=== PATIENT | female | born 1945 | race Caucasian/White ===

== ENCOUNTER → 2016-10-22 | Outpatient (CLI) | payer MEDICARE, OTHER ==
[~2016-10-22] MED LIST: BIOTIN 800 MCG1 EACH PO; COLACE100 MG PO; ESTRACE42.5 GM TOP; LEVOTHROID (SY25 MCG PO; LIDEX 0.05%15 GM TOP; LUTEIN 15 MG S1 EACH PO; OSCAL + D500 MG PO; THERAGRAN-M1 TAB PO; ULTRAM50 MG PO; VITAMIN D400 UNIT PO
== END | disposition disaster alternative care site (69) ==
LOC: GRAD 08:33
DX: M47.812 Spondylosis without myelopathy or radiculopathy, cervical region (principal); M54.2 Cervicalgia

== ENCOUNTER 2017-03-10 13:00 | Inpatient (IN) | payer MEDICARE, OTHER ==
[~2017-03-10] VITALS: Ht 170.2 cm; Wt 62.9 kg
--- NOTE | ~2017-03-10 | DS ---
PATIENT'S NAME: TRISHA FLOWERS [facility] AGE: 71 Y [address] ROOM: [address] [address] LOCATION: [facility] ADMIT DATE: 03/12/2017 Discharge Summary DISCHARGE DATE: 03/14/2017 FAMILY PHYSICIAN: Jaylin Wilkins NP ATTENDING PHYSICIAN: Haven Miller REASON FOR ADMISSION: The patient was scheduled admission for an elective procedure. The patient presented with clinical and radiological findings consistent with cervical spondylosis with radiculopathy. TREATMENT RENDERED: The patient was taken to the operating room on 12/10/2016. She underwent anterior cervical diskectomy with allograft fusion and plating at C3-C4, C4-C5, and C6-C7. The surgery was uncomplicated. The patient's hospitalization was uneventful. She did have some nausea, the first day and required a fair amount of antiemetics to control the nausea. She also had the expected amount of postoperative pain, but she responded to medicines for both conditions. The patient continued to improve and by the 14 of March was well enough to go home. She was discharged home on that day with arrangements made to follow up in the Neurosurgery Clinic. At the time of discharge, her incision was healing well. FINAL DIAGNOSIS: Cervical spondylosis with radiculopathy status post cervical diskectomy and fusion. MD JENNIFER GROVE/lauryn /[id number] d: t: 03/29/17 0035, DISCHARGE SUMMARY
--- NOTE | ~2017-03-10 | OR ---
PATIENT'S NAME: TRISHA FLOWERS [facility] AGE: 71 Y [address] ROOM: [address] [address] LOCATION: [facility] ADMIT DATE: 03/12/2017 OR/Procedure Report DISCHARGE DATE: 03/14/2017 FAMILY PHYSICIAN: Jaylin Wilkins NP ATTENDING PHYSICIAN: Haven Miller SURGEON: Haven Miller MD COMPUTATIONAL MATHEMATICIAN: Negrita Ly CST DATE OF PROCEDURE: 03/12/2017 PREOPERATIVE DIAGNOSES: Cervical spondylosis with radiculopathy. POSTOPERATIVE DIAGNOSES: Cervical spondylosis with radiculopathy. PROCEDURES PERFORMED: 1. Anterior cervical diskectomy with decompression of neural elements and foraminotomy at C3-C4. 2. Anterior cervical diskectomy with decompression of neural elements and foraminotomy at C4-C5. 3. Anterior cervical diskectomy with decompression of neural elements and foraminotomy at C5-C6. 4. Use of structural and morselized allograft fusion at C3-C4. 5. Use of structural and morselized allograft fusion at C4-C5. 6. Use of structural and morselized allograft fusion at C5-C6. 7. Anterior cervical plating with Cobden Plate by DePuy from C3 to C6. 8. Use of intraoperative microscope. ANESTHESIA: General. ANESTHESIA PROVIDER: Dennis Gray MD. HISTORY: The patient is a 71-year-old female who presented with left arm weakness and numbness. The patient's symptoms had been present for a long time. She also had some left shoulder pain. 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 Surgery was recommended. The above procedures, benefits, and risks were discussed with the patient and her . With her consent, she was brought to the operating room for surgery. PROCEDURE IN DETAIL: In the operating room, the patient was placed in a supine position. Anesthesia was induced and she was intubated. The incision was marked out along the anterior border of the right sternomastoid muscle. The whole area was prepped and draped in a sterile fashion. Local anesthesia was infiltrated. The #10-blade was used to open the incision, and the platysma was divided. Dissecting along the anterior border of the sternomastoid muscle, the omohyoid muscle was seen. Dissection then continued in the gap between the PATIENT'S NAME: TRISHA FLOWERS [facility] AGE: 71 Y [address] ROOM: [id number] [place], [place] [address] LOCATION: [facility] ADMIT DATE: 03/12/2017 OR/Procedure Report DISCHARGE DATE: 03/14/2017 FAMILY PHYSICIAN: Jaylin Wilkins NP ATTENDING PHYSICIAN: Haven Miller omohyoid and sternomastoid muscles, working in a plane medial to the carotid artery and lateral to the esophagus and trachea until we got to the anterior surface of the spine. The [employer] handheld retractors were used to help with visualization. At the anterior surface of the spine, the longus colli muscles were dissected off on both sides. [employer] retractors were placed. Intraoperative x-ray was obtained to confirm that we were at the intended levels of C3-C4, C4-C5, and C5-C6. Diskectomy was then carried out at all three levels. Each disk space was incised with a #15-blade, and the pituitary rongeur was used to pull out disk material. The C4-C5 disk space was exceedingly narrow. Working very carefully, diskectomy was carried out at all three levels. The Tyler distraction pins were used to help open up the depths of the disk space, and under microscopic vision, the posterior osteophytes as well as the posterior longitudinal ligaments were removed at each level. Foraminotomy was carried out at all three levels, particularly on the left side where the patient had more symptoms. After the decompression and foraminotomy, the fusion was commenced. The adjacent endplates at C3-C4, C4-C5, and C5-C6 were drilled down. Allograft bone was then selected to match each space, and prior to inserting the allograft bone, the bone was filled with demineralized bone matrix, i.e., morcellized allograft. We had a very snug fit at each level. An anterior plate was then used to support the fusion, and two screws each were screwed into C3, C4, C5, and C6. Another x-ray was obtained to confirm that the graft, screws, and plates were in satisfactory position as indeed they were. Final tightening was carried out. Irrigation was used to wash out the debris. Hemostasis was achieved. The incision was closed in layers using appropriate suture materials. Dermabond was used to close the skin. A sterile dressing was applied. POSTOPERATIVE CONDITION: The patient's anesthesia was then reversed. She was extubated and taken to the recovery room to complete her recovery. ATTESTATION: I was present at and performed every aspect of this procedure, assisted at different times by the operating room nurses. COMPLICATIONS: There were no apparent intraoperative complications. COUNT RESULTS: Swabs, needles, and instruments were all accounted for at the PATIENT'S NAME: TRISHA FLOWERS [facility] AGE: 71 Y [address] ROOM: [address] [address] LOCATION: [facility] ADMIT DATE: 03/12/2017 OR/Procedure Report DISCHARGE DATE: 03/14/2017 FAMILY PHYSICIAN: Jaylin Wilkins NP ATTENDING PHYSICIAN: Haven Miller end of the case. ESTIMATED BLOOD LOSS: Less than 100 mL. There was no reason for blood transfusion. I expect the patient to benefit from this procedure. MD JENNIFER GROVE/lauryn /[id number] d: 03/12/172319 t: 03/16/171930, OPERATIVE SUMMARY
[2017-03-10] MEDS ORDERED: LEVOTHROID (SY25 MCG PO (13:37)
[2017-03-10] MEDS ORDERED: VITAMIN D400 UNIT PO (13:38)
[2017-03-10] MEDS ORDERED: OSCAL + D500 MG PO (13:50)
[2017-03-10] MEDS ORDERED: THERAGRAN-M1 TAB PO (13:50)
[2017-03-10] MEDS ORDERED: COLACE100 MG PO (13:51)
[2017-03-10] MEDS ORDERED: BIOTIN 800 MCG1 EACH PO (13:51)
[2017-03-10] MEDS ORDERED: LUTEIN 15 MG S1 EACH PO (13:52)
[2017-03-10] MEDS ORDERED: ESTRACE42.5 GM TOP (13:53)
[2017-03-10] MEDS ORDERED: LIDEX 0.05%15 GM TOP (13:54)
[2017-03-14] MEDS ORDERED: ULTRAM50 MG PO (12:03)
== END 2017-03-14 13:30 | disposition disaster alternative care site (69) | DRG 473 ==
LOC: G3N 03-12 05:48
PROVIDERS: ADMIT Neurological Surgery
PROC: 00NW0ZZ Release Cervical Spinal Cord, Open Approach (ICD-10-PCS; principal; 2017-03-12)
PROC: 0RB30ZZ Excision of Cervical Vertebral Disc, Open Approach (ICD-10-PCS; principal; 2017-03-12)
PROC: 0RG20K0 Fusion of 2 or more Cervical Vertebral Joints with Nonautologous Tissue Substitute, Anterior Approach, Anterior Column, Open Approach (ICD-10-PCS; principal; 2017-03-12)
DX: M47.22 Other spondylosis with radiculopathy, cervical region (principal); E03.9 Hypothyroidism, unspecified; Z88.8 Allergy status to other drugs, medicaments and biological substances; E78.2 Mixed hyperlipidemia; M81.0 Age-related osteoporosis without current pathological fracture; M19.90 Unspecified osteoarthritis, unspecified site
CPT/HCPCS: C1713; J0690; J1100; J2001; J2250; J2270; J2405; J2550; J3010; J3250; J3360; J7030